=== PATIENT | male | born 2000 | race Caucasian/White ===

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

== ENCOUNTER 2020-04-28 04:36 | Emergency (ER) | payer OTHER ==
[2020-04-28 04:45] VITALS: BP 100/53; PULSE 94; RESP 20; TEMP 98.3
--- NOTE | 2020-04-28 05:08 | ED ---
Head Injury HPI <Khushboo Bowling - Last Filed: 04/28/20 06:36> - General Source: patient, RN notes reviewed, old records reviewed Mode of arrival: ambulatory Limitations: altered mental status (Alcohol intoxication) - History of Present Illness MD Complaint: head injury, fall, other (Alcohol intoxication) -: hour(s) Mechanism of Injury: unsure, mechanical fall Location: frontal, face Loss of Consciousness: unsure Place: home Radiation: none Severity: moderate Severity scale (1-10): 4 Quality: aching Consistency: constant Provoking factors: none known Other Injuries: none Associated Symptoms: denies other symptoms <Valentino Pierre - Last Filed: 04/28/20 06:52> - General Chief complaint: Head Injury Stated complaint: Fall Time Seen by Provider: 04/28/20 04:38 - History of Present Illness Initial comments: This is a 19-year-old male DF for evaluation. Patient comes in for trip and fall. No medical history, takes no medications, does admit to drinking alcohol tonight. Patient fell forward landing on his face unsure of how he lost his balance. Otherwise no other complaints no loss of consciousness no wrist pain arm pain chest pain knee pain or any other pain noted. (Valentino Pierre) - Related Data Home Medications Medication Instructions Recorded Confirmed Cetirizine HCl [Zyrtec] 10 mg PO DAILY 03/01/16 03/01/16 Allergies/Adverse reactions: Allergies Allergy/AdvReac Type Severity Reaction Status Date / Time No Known Allergies Allergy Verified 04/28/20 04:45 Review of Systems ROS Other: All systems not noted in ROS Statement are negative. <Khushboo Bowling - Last Filed: 04/28/20 06:36> ROS Other: All systems not noted in ROS Statement are negative. <Valentino Pierre - Last Filed: 04/28/20 06:52> ROS Statement: Those systems with pertinent positive or pertinent negative responses have been documented in the HPI. Past Medical History Past Medical History: No Reported History History of Any Multi-Drug Resistant Organisms: None Reported Additional Past Surgical History / Comment(s): hydrocele Past Psychological History: No Psychological Hx Reported Smoking Status: Never smoker Past Alcohol Use History: None Reported Past Drug Use History: None Reported <Valentino Pierre - Last Filed: 04/28/20 06:52> General Exam Limitations: no limitations General appearance: alert, in no apparent distress Head exam: Present: normocephalic, normal inspection, other (Significant periorbital edema). Absent: atraumatic (Right eye has laceration about 3 cm) Eye exam: Present: normal appearance, PERRL, EOMI. Absent: scleral icterus, conjunctival injection, periorbital swelling ENT exam: Present: normal exam, mucous membranes moist Neck exam: Present: normal inspection. Absent: tenderness, meningismus, lymphadenopathy Respiratory exam: Present: normal lung sounds bilaterally. Absent: respiratory distress, wheezes, rales, rhonchi, stridor Cardiovascular Exam: Present: regular rate, normal rhythm, normal heart sounds. Absent: systolic murmur, diastolic murmur, rubs, gallop, clicks GI/Abdominal exam: Present: soft, normal bowel sounds. Absent: distended, tenderness, guarding, rebound, rigid Extremities exam: Present: normal inspection, full ROM, normal capillary refill. Absent: tenderness, pedal edema, joint swelling, calf tenderness Back exam: Present: normal inspection Neurological exam: Present: alert, oriented X3, CN II-XII intact Psychiatric exam: Present: normal affect, normal mood Skin exam: Present: warm, dry, intact, normal color. Absent: rash <Valentino Pierre - Last Filed: 04/28/20 06:52> Course <Valentino Pierre - Last Filed: 04/28/20 06:52> Vital Signs 04/28/20 04:40 Temperature 98.3 F Pulse Rate 94 Respiratory 20 Rate Blood Pressure 100/53 O2 Sat by Pulse 100 Oximetry - Reevaluation(s) Reevaluation #1: 04/28/20 05:41 medical record is reviewed (Valentino Pierre) Reevaluation #2: 04/28/20 06:51 Patient is in no distress here in the ER able to ambulate without difficulty will be discharged. (Valentino Pierre) Procedures - Laceration Laceration #1 Consent Obtained: verbal consent Indication: laceration Site: face Size (cm): 3 Description: flap, avulsion, irregular, clean Anesthetic Used: lidocaine 1% Anesthesia Technique: local infiltration Amount (mls): 1 Pre-repair: wound explored, irrigated extensively Type of Sutures: nylon Size of Sutures: 6-0 Number of Sutures: 8 Technique: simple, interrupted Patient Tolerated Procedure: well, no complications <Khushboo Bowling - Last Filed: 04/28/20 06:36> Medical Decision Making - Radiology Data Radiology results: report reviewed (CT brain C-spine and facial bones negative for traumatic fracture), image reviewed <Valentino Pierre - Last Filed: 04/28/20 06:52> - Medical Decision Making 19-year-old male DF status post trip and fall. Patient is staying supraorbital 3 cm laceration above right eye with periorbital edema. CT facial bones brain C-spine negative for traumatic injury and patient can be discharged home with intoxication patient be discharged to family (Valentino Pierre) Disposition <Khushboo Bowling - Last Filed: 04/28/20 06:36> Is patient prescribed a controlled substance at d/c from ED?: No <Valentino Pierre - Last Filed: 04/28/20 06:52> Clinical Impression: Closed head injury, Facial laceration, Alcohol intoxication Disposition: HOME SELF-CARE Condition: Good Instructions (If sedation given, give patient instructions): Head Injury (ED), Laceration (ED) Referrals: None,Stated [Primary Care Provider] - 1-2 days
[2020-04-28] MEDS ORDERED: LIDOCAINE 1%-EPI 1:100,000 20 ML VIAL SQ STA (05:36)
--- NOTE | 2020-04-28 05:53 | CT ---
EXAM: CT Head Without Intravenous Contrast CLINICAL HISTORY: fall TECHNIQUE: Axial computed tomography images of the head/brain without intravenous contrast. CTDI is 25.8 mGy and DLP is 783.9 mGy-cm. This CT exam was performed using one or more of the following dose reduction techniques: automated exposure control, adjustment of the mA and/or kV according to patient size, and/or use of iterative reconstruction technique. COMPARISON: No relevant prior studies available. FINDINGS: Brain: Unremarkable. No hemorrhage. No significant white matter disease. No edema. Ventricles: Unremarkable. No ventriculomegaly. Bones/joints: Unremarkable. No acute fracture. Soft tissues: Mild scalp soft tissue swelling overlying the right frontal calvarium. Sinuses: Please refer to the maxillofacial CT performed the same day. Mastoid air cells: Unremarkable as visualized. No mastoid effusion. IMPRESSION: No evidence of acute intracranial pathology. EXAM: CT Cervical Spine Without Intravenous Contrast CLINICAL HISTORY: fall TECHNIQUE: Axial computed tomography images of the cervical spine without intravenous contrast. CTDI is 12 mGy and DLP is 353.3 mGy-cm. This CT exam was performed using one or more of the following dose reduction techniques: automated exposure control, adjustment of the mA and/or kV according to patient size, and/or use of iterative reconstruction technique. COMPARISON: No relevant prior studies available. FINDINGS: Vertebrae: No evidence of acute fracture or traumatic malalignment. Straightening of the normal cervical lordosis, which may represent muscle spasm versus positioning. Discs/spinal canal/neural foramina: No acute findings. No spinal canal stenosis. Soft tissues: Unremarkable. IMPRESSION: 1. No evidence of acute fracture or traumatic malalignment. 2. Straightening of the normal cervical lordosis, which may represent muscle spasm versus positioning.
--- NOTE | 2020-04-28 06:31 | CT ---
EXAM: CT Maxillofacial Without Intravenous Contrast CLINICAL HISTORY: fall TECHNIQUE: Axial computed tomography images of the face without intravenous contrast. CTDI is 0.17 mGy and DLP is 7 mGy-cm. This CT exam was performed using one or more of the following dose reduction techniques: automated exposure control, adjustment of the mA and/or kV according to patient size, and/or use of iterative reconstruction technique. COMPARISON: No relevant prior studies available. FINDINGS: Bones/joints: No acute fracture. Soft tissues: Unremarkable. Orbits: Unremarkable. Sinuses: Mild right and moderate left polypoid mucosal thickening involving both maxillary sinuses. Mucous retention cysts would be included in the differential. No air-fluid levels. IMPRESSION: No acute findings in the face.
== END 2020-04-28 07:07 | disposition home or self-care (01) ==
LOC: EC 04:36
DX: F10.129 Alcohol abuse with intoxication, unspecified (principal); S01.81XA Laceration without foreign body of other part of head, initial encounter; W01.0XXA Fall on same level from slipping, tripping and stumbling without subsequent striking against object, initial encounter; Y92.009 Unspecified place in unspecified non-institutional (private) residence as the place of occurrence of the external cause
CPT/HCPCS: 12013; 70450; 70486; 72125; 99284

== ENCOUNTER 2021-07-13 06:15 | Inpatient (IN) | payer OTHER ==
[2021-07-13 06:29] LABS: Glucose,Whole Blood 192 mg/dL (75-99)
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
[2021-07-13 06:45] LABS: Basophils # (A) 0.1 k/uL (0-0.2); Basophils % (A) 1 %; Eosinophils # (A) 0.1 k/uL (0-0.7); Eosinophils % (A) 1 %; HGB 15.3 gm/dL (13.0-17.5); Lymphocytes # (A) 4.4 k/uL (1.0-4.8); Lymphocytes % (A) 27 %; MCHC 33.9 g/dL (31.0-37.0); MCV 94.3 fL (80.0-100.0); Mean Platelet Volume 7.1; Monocytes # (A) 0.3 k/uL (0-1.0); Monocytes % (A) 2 %; Neutrophils % (A) 68 %; Platelet Count 369 k/uL (150-450); RBC 4.77 m/uL (4.30-5.90); RDW 12.8 % (11.5-15.5); WBC 16.1 k/uL (4.0-11.0)
[2021-07-13 06:53] LABS: Partial Thromboplastin Time 22.2 sec (22.0-30.0); Prothrombin Time 10.6 sec (9.0-12.0)
[2021-07-13 06:55] LABS: ALT 35 U/L (4-49); AST 48 U/L (17-59); African American GFR (CKD) >90 (>60 ml/min/1.73 sqM); Albumin 4.4 g/dL (3.5-5.0); Alkaline Phosphatase 96 U/L (38-126); Anion Gap 11 mmol/L; Blood Urea Nitrogen 12 mg/dL (9-20); Calcium 8.4 mg/dL (8.4-10.2); Carbon Dioxide 20 mmol/L (22-30); Chloride 110 mmol/L (98-107); Glucose 218 mg/dL (74-99); Non-African American GFR(CKD) >90 (>60 ml/min/1.73 sqM); Potassium 4.1 mmol/L (3.5-5.1); Sodium 141 mmol/L (137-145); Total Bilirubin 0.5 mg/dL (0.2-1.3); Total Protein 7.5 g/dL (6.3-8.2)
[2021-07-13] MEDS ORDERED: SODIUM CHLORIDE 0.9% 1,000 ML IV ONE (06:57)
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
[2021-07-13 07:16] LABS: Alcohol 221 mg/dL
[2021-07-13 07:18] LABS: Appearance,Urine Clear (Clear); Bilirubin,Urine Negative (Negative); Blood,Urine Moderate (Negative); Color,Urine Light Yellow; Glucose,Urine (UA) 2+ (Negative); Granular Casts,Urine 4 /lpf (0); Hyaline Casts,Urine 7 /lpf (0-2); Ketones,Urine Negative (Negative); Leukocyte Esterase,Urine Negative (Negative); Mucus,Urine Rare /hpf; Nitrite,Urine Negative (Negative); PH, Urine 5.5 (5.0-8.0); Protein,Urine Negative (Negative); RBC,Urine 3 /hpf (0-5); Renal Epithelial Cells,Urine 3 /hpf (0); Specific Gravity,Urine 1.015 (1.001-1.035); Urobilinogen,Urine <2.0 mg/dL (<2.0); WBC,Urine 3 /hpf (0-5)
[2021-07-13 07:24] LABS: Amphetamine Screen,Urine Not Detected (NotDetected); Barbiturate Screen,Urine Not Detected (NotDetected); Benzodiazepines Screen,Urine Not Detected (NotDetected); Cocaine Screen,Urine Not Detected (NotDetected); Methadone Screen, Urine Not Detected (NotDetected); Opiate Screen,Urine Not Detected (NotDetected); Oxycodone Screen, Urine Not Detected (NotDetected); Phencyclidine Screen,Urine Not Detected (NotDetected); Tricyclic Antidepressant,Urine Not Detected (NotDetected); Urn Cannabinoid Scrn Not Detected (NotDetected)
[2021-07-13] MEDS ORDERED: LIDOCAINE 1% INJ 10MG/ML (20 ML MDV) SQ ONE (07:26)
[2021-07-13] MEDS ORDERED: ONDANSETRON 4 MG/2 ML VIAL IVP PRN (07:52)
[2021-07-13] MEDS ORDERED: NALOXONE 0.4 MG/ML 1 ML VIAL IV PRN (07:52)
[2021-07-13] MEDS ORDERED: ACETAMINOPHEN TAB 325 MG TAB PO PRN (07:52)
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
[2021-07-13] MEDS: THIAMINE 100 MG/ML 2 ML VIAL IVP SCH (10:07)
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
[2021-07-13 12:26] LABS: T4, Free (Free Thyroxine) 1.16 ng/dL (0.78-2.19)
[2021-07-13] MEDS: SODIUM CHLORIDE 0.9% 1,000 ML IV SCH ×2 (15:51→17:12)
[2021-07-13] MEDS: HEPARIN SODIUM,PORCINE/PF 5,000 UNIT/0.5 ML SYRINGE SQ SCH (16:59)
[2021-07-13 18:31] LABS: Glucose,Whole Blood 89 mg/dL (75-99)
[2021-07-13] MEDS: FAMOTIDINE 20 MG/2 ML VIAL IV SCH (20:48)
[2021-07-13] MEDS: KETOROLAC 30 MG/ML 1 ML VIAL IVP PRN (21:24)
[2021-07-14 00:37] LABS: Glucose,Whole Blood 89 mg/dL (75-99)
[2021-07-14] MEDS: SODIUM CHLORIDE 0.9% 1,000 ML IV SCH ×3 (00:37→15:14)
[2021-07-14] MEDS: HEPARIN SODIUM,PORCINE/PF 5,000 UNIT/0.5 ML SYRINGE SQ SCH ×3 (00:37→15:15)
[2021-07-14] MEDS: KETOROLAC 30 MG/ML 1 ML VIAL IVP PRN ×3 (04:30→20:30)
[2021-07-14 06:33] LABS: Glucose,Whole Blood 93 mg/dL (75-99)
[2021-07-14 08:02] LABS: HCT 39.4 % (39.0-53.0); HGB 13.4 gm/dL (13.0-17.5); MCH 31.9 pg (25.0-35.0); MCHC 33.9 g/dL (31.0-37.0); Mean Platelet Volume 7.5; Platelet Count 231 k/uL (150-450); RDW 12.2 % (11.5-15.5); WBC 13.6 k/uL (4.0-11.0)
[2021-07-14] MEDS: FAMOTIDINE 20 MG/2 ML VIAL IV SCH ×2 (08:06→20:31)
[2021-07-14] MEDS: THIAMINE 100 MG/ML 2 ML VIAL IVP SCH (08:06)
[2021-07-14 08:12] LABS: ALT 28 U/L (4-49); AST 40 U/L (17-59); African American GFR (CKD) >90 (>60 ml/min/1.73 sqM); Albumin 3.6 g/dL (3.5-5.0); Alkaline Phosphatase 88 U/L (38-126); Anion Gap 5 mmol/L; Blood Urea Nitrogen 14 mg/dL (9-20); Calcium 8.9 mg/dL (8.4-10.2); Carbon Dioxide 24 mmol/L (22-30); Chloride 107 mmol/L (98-107); Glucose 96 mg/dL (74-99); Non-African American GFR(CKD) >90 (>60 ml/min/1.73 sqM); Potassium 4.1 mmol/L (3.5-5.1); Sodium 136 mmol/L (137-145); Total Bilirubin 1.7 mg/dL (0.2-1.3); Total Protein 6.4 g/dL (6.3-8.2)
--- NOTE | 2021-07-14 10:52 | CT ---
rad EXAMINATION TYPE: CT facial bones wo con DATE OF EXAM: 07/14/2021 COMPARISON: None HISTORY: Trauma Unenhanced CT of the facial bones was performed in the axial and coronal planes. Bone and soft tissu e window settings are submitted. There is mildly comminuted fracture involving the proximal body near the mentum of the right hemimand ible. Displacement of approximately 1 mm noted. Soft tissue swelling and a small amount of soft tissu e air seen. There is a loose tooth noted within the mouth. No additional fractures are seen within th e [id number]. The globes are intact. Paranasal sinuses are well-aerated. IMPRESSION: 1. There is mildly comminuted fracture involving the proximal body near the mentum of the right chavez mandible.
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
--- NOTE | 2021-07-14 12:00 | ECHOF ---
Referral Reason:LV function MEASUREMENTS -------- HEIGHT: 170.2 cm WEIGHT: 59.0 kg BP: RVIDd: 2.9 cm (< 3.3) IVSd: 1.0 cm (0.6 - 1.1) LVIDd: 4.0 cm (3.9 - 5.3) LVPWd: 1.0 cm (0.6 - 1.1) IVSs: 1.3 cm LVIDs: 2.8 cm LVPWs: 1.3 cm LAESV Index (A-L): 20.98 ml/m Ao Diam: 2.9 cm (2.0 - 3.7) AV Cusp: 2.2 cm (1.5 - 2.6) LA Diam: 3.5 cm (2.7 - 3.8) MV EXCURSION: 17.802 mm (> 18.000) MV EF SLOPE: 117 mm/s (70 - 150) EPSS: 0.5 cm MV E Lincoln: 0.96 m/s MV DecT: 217 ms MV A Lincoln: 0.53 m/s MV E/A Ratio: 1.80 RAP: 5.00 mmHg RVSP: 28.59 mmHg FINDINGS -------- Sinus rhythm. This was a technically adequate study. The left ventricular size is normal. Left ventricular wall thickness is normal. Overall left vent ricular systolic function is normal with, an EF between 55 - 60 %. The diastolic filling pattern is normal for the age of the patient 6.05. The right ventricle is normal in size. Normal LA size by volume 22+/-6 ml/m2. The right atrial size is normal. Interatrial and interventricular septum intact. The aortic valve is trileaflet and appears structurally normal. There is no evidence of aortic regu rgitation. There is no evidence of aortic stenosis. Can not r/o bicuspid AV No mitral regurgitation. Mild tricuspid regurgitation present. There is no evidence of pulmonary hypertension. The right v entricular systolic pressure, as measured by Doppler, is 28.59mmHg. There is no pulmonic regurgitation present. The aortic root size is normal. The inferior vena cava is mildly dilated. There is no pericardial effusion. CONCLUSIONS -------- 1. The left ventricular size is normal. 2. Left ventricular wall thickness is normal. 3. Overall left ventricular systolic function is normal with, an EF between 55 - 60 %. 4. The diastolic filling pattern is normal for the age of the patient 6.05 5. Can not r/o bicuspid AV 6. Mild tricuspid regurgitation present. T[employer] ENGINE ASSEMBLER: Alpa Vail RDCS
[2021-07-14 12:01] LABS: Glucose,Whole Blood 100 mg/dL (75-99)
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
[2021-07-14 16:39] LABS: Glucose,Whole Blood 99 mg/dL (75-99)
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
[2021-07-15] MEDS: HEPARIN SODIUM,PORCINE/PF 5,000 UNIT/0.5 ML SYRINGE SQ SCH ×4 (00:38→23:51)
[2021-07-15] MEDS: SODIUM CHLORIDE 0.9% 1,000 ML IV SCH ×2 (05:21→18:09)
[2021-07-15] MEDS: FAMOTIDINE 20 MG/2 ML VIAL IV SCH ×2 (08:30→20:29)
[2021-07-15] MEDS: THIAMINE 100 MG/ML 2 ML VIAL IVP SCH (08:31)
[2021-07-15 12:11] LABS: Glucose,Whole Blood 88 mg/dL (75-99)
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
[2021-07-15] MEDS: KETOROLAC 30 MG/ML 1 ML VIAL IVP PRN ×2 (13:43→23:49)
--- NOTE | 2021-07-15 14:10 | CT ---
EXAMINATION TYPE: CT brain wo con DATE OF EXAM: 07/15/2021 COMPARISON: CT brain 2 days ago HISTORY: Concussion, follow up r/o slow growing SDH CT DLP: 1099.4 mGycm. Automated Exposure Control for Dose Reduction was Utilized. TECHNIQUE: CT scan of the head is performed without contrast. FINDINGS: There is no acute intracranial hemorrhage, mass effect, or midline shift identified. The ventricles and sulci are within normal limits in size. Seth-white matter differentiation is maintain ed. The calvarium is intact. The globes are intact and the visualized sinuses are clear. IMPRESSION: No acute intracranial hemorrhage or midline shift is seen. No significant change from pr ior study.
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
[2021-07-15 18:14] LABS: Glucose,Whole Blood 185 mg/dL (75-99)
--- NOTE | 2021-07-15 18:19 | P.PN ---
Progress Note - Text Progress Note Date: 07/15/21 Patient's surgery today was canceled due to inability to get MRI for MRI department closed at 2:00. There was some question as to the order and hospital MRI policy on recently placed stainless steel wires in the mouth. Did not want to wait 6 more weeks for MRI if the policy was not able to be circumvented. Plan to get MRI first thing tomorrow morning and then plan to do surgery in the afternoon Discussed these events with mom and patient were disappointed but understood. Plan to do surgery tomorrow. Patient was happy to get some food tonight. Reports his pain is well-controlled. Able open his mouth when yawning to approximately 10-15 mm but When asked open his mouth has difficulty. Patient reports numbness lower right lip and discussed with patient and mother how this may be a permanent situation. Swelling of the face appears less than yesterday patient appears more comfortable and alert. Assessment comminuted right mandibular body fracture awaiting surgery. Plan to get a MRI in the morning and surgery in the afternoon.
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
[2021-07-16 00:04] LABS: Glucose,Whole Blood 90 mg/dL (75-99)
[2021-07-16 05:48] LABS: Glucose,Whole Blood 93 mg/dL (75-99)
[2021-07-16] MEDS: KETOROLAC 30 MG/ML 1 ML VIAL IVP PRN (07:43)
[2021-07-16] MEDS: SODIUM CHLORIDE 0.9% 1,000 ML IV SCH (07:49)
[2021-07-16] MEDS: HEPARIN SODIUM,PORCINE/PF 5,000 UNIT/0.5 ML SYRINGE SQ SCH ×3 (10:07→20:29)
[2021-07-16] MEDS: FAMOTIDINE 20 MG/2 ML VIAL IV SCH ×2 (10:09→20:28)
[2021-07-16] MEDS: THIAMINE 100 MG/ML 2 ML VIAL IVP SCH (10:10)
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
[2021-07-16 10:58] VITALS: BMI 23.7
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
[2021-07-16 12:34] LABS: Glucose,Whole Blood 103 mg/dL (75-99)
--- NOTE | 2021-07-16 13:36 | MR ---
EXAMINATION TYPE: MR brachial plexus SRI wo con DATE OF EXAM: 07/16/2021 COMPARISON: MRI cervical spine 07/14/2021 HISTORY: T2 signal; BL UE weakness Standard multiplanar, multisequence MRI departmental protocol Multiplanar, multisequence images of the bilateral brachial plexus were acquired without contrast. Di ffusion weighted imaging was performed. FINDINGS: There is confirmation of mild increased signal within the bilateral C5-6, C6-7 and C7-T1 brachial ple xus trunks and roots. The visualized cords appear to be symmetric and free of definite increased sign al or mass. No abnormal fluid collection. No mass lesions seen. IMPRESSION: Mld increased signal within the bilateral C5-6, C6-7 and C7-T1 brachial plexus trunks and roots. The findings are nonspecific and could be posttraumatic in nature versus related to brachial plexitis/demond ritis.
[2021-07-16] MEDS ORDERED: LACTATED RINGERS 1,000 ML IV ONE ×2 (13:39→14:52)
[2021-07-16] MEDS ORDERED: ONDANSETRON 4 MG/2 ML VIAL IVP ONE (13:42)
[2021-07-16] MEDS ORDERED: DEXAMETHASONE SOD PHOSPHATE 4 MG/ML 1 ML VIAL IV ONE (13:43)
[2021-07-16] MEDS ORDERED: MIDAZOLAM 2 MG/2 ML VIAL ONE (14:00)
[2021-07-16] MEDS ORDERED: ACETAMINOPHEN IV (For NPO) 1,000 MG/100 ML VIAL ONE (14:00)
[2021-07-16] MEDS ORDERED: PROPOFOL 10 MG/ML 20 ML VIAL IV ONE (14:00)
[2021-07-16] MEDS ORDERED: NEOSTIGMINE 1 MG/ML 10 ML VIAL ONE (14:00)
[2021-07-16] MEDS ORDERED: ONDANSETRON 4 MG/2 ML VIAL ONE (14:00)
[2021-07-16] MEDS ORDERED: LIDOCAINE 1% INJ 10MG/ML (20 ML MDV) ONE (14:00)
[2021-07-16] MEDS ORDERED: SUCCINYLCHOLINE CHLORIDE 100 MG/5 ML SYR IV ONE (14:00)
[2021-07-16] MEDS ORDERED: GLYCOPYRROLATE 0.2 MG/ML 2 ML VIAL ONE (14:00)
[2021-07-16] MEDS ORDERED: ROCURONIUM 10 MG/ML (5 ML VIAL) IV ONE (14:00)
[2021-07-16] MEDS ORDERED: fentaNYL (PF) 50 MCG/ML 2 ML AMP ONE (14:00)
[2021-07-16] MEDS ORDERED: DEXAMETHASONE SOD PHOSPHATE 10 MG/ML 1 ML VIAL ONE (14:00)
[2021-07-16] MEDS ORDERED: KETOROLAC 15 MG/ML 1 ML VIAL ONE (14:00)
[2021-07-16] MEDS ORDERED: LIDOCAINE 2%-EPI 1:100,000 20 ML VIAL SUBMUCOSAL ONE ×2 (14:24)
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
[2021-07-16 17:42] LABS: Glucose,Whole Blood 119 mg/dL (75-99)
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
[2021-07-17 00:25] LABS: Glucose,Whole Blood 152 mg/dL (75-99)
[2021-07-17] MEDS: KETOROLAC 30 MG/ML 1 ML VIAL IVP PRN ×3 (04:19→17:41)
[2021-07-17] MEDS: SODIUM CHLORIDE 0.9% 1,000 ML IV SCH ×2 (05:40→11:50)
[2021-07-17 05:58] LABS: Glucose,Whole Blood 140 mg/dL (75-99)
[2021-07-17 07:17] LABS: Basophils % (A) 0 %; Eosinophils % (A) 0 %; HCT 38.7 % (39.0-53.0); HGB 13.4 gm/dL (13.0-17.5); Lymphocytes % (A) 11 %; MCH 31.3 pg (25.0-35.0); MCHC 34.6 g/dL (31.0-37.0); MCV 90.6 fL (80.0-100.0); Mean Platelet Volume 7.4; Monocytes # (A) 0.7 k/uL (0-1.0); Monocytes % (A) 7 %; Neutrophils # (A) 7.7 k/uL (1.3-7.7); Neutrophils % (A) 81 %; Platelet Count 285 k/uL (150-450); RBC 4.27 m/uL (4.30-5.90); RDW 11.7 % (11.5-15.5); WBC 9.5 k/uL (4.0-11.0)
[2021-07-17 07:51] LABS: African American GFR (CKD) >90 (>60 ml/min/1.73 sqM); Anion Gap 5 mmol/L; Blood Urea Nitrogen 14 mg/dL (9-20); Calcium 9.2 mg/dL (8.4-10.2); Carbon Dioxide 25 mmol/L (22-30); Chloride 103 mmol/L (98-107); Glucose 129 mg/dL (74-99); Non-African American GFR(CKD) >90 (>60 ml/min/1.73 sqM); Potassium 4.6 mmol/L (3.5-5.1); Sodium 133 mmol/L (137-145)
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
[2021-07-17] MEDS: FAMOTIDINE 20 MG/2 ML VIAL IV SCH (08:53)
[2021-07-17] MEDS: THIAMINE 100 MG/ML 2 ML VIAL IVP SCH (08:54)
[2021-07-17] MEDS: HEPARIN SODIUM,PORCINE/PF 5,000 UNIT/0.5 ML SYRINGE SQ SCH ×2 (08:54→16:31)
--- NOTE | 2021-07-17 09:15 | PN ---
PROGRESS NOTE SUBJECTIVE: The patient's mother in room. Resting comfortably. No complaints. Had a good night last night. The patient appears alert and oriented x3. Drinking from straw at the bedside. Jell-O at bedside as well as thickened shake looking material. The patient reported minimal pain last night, well controlled and eager to go home. OBJECTIVE: Intraoral exam shows the patient has good maxillomandibular fixation with inter arch wires in place. Extraoral wounds are clean. Extraoral wound is intact and clean. ASSESSMENT: Patient is responding well to closed reduction maxillomandibular fixation. One day postop course appears within normal limits. PLAN: The patient to continue increasing oral intake. Follow up in the office in 10-14 days. The patient is to carry a set of wire cutters on his person at all times and only cut wires in case of emergency. The patient is clear to go home from an oral surgery standpoint. MMODL / IJN: [id number] /
[2021-07-17 12:00] LABS: Glucose,Whole Blood 108 mg/dL (75-99)
[2021-07-17] MEDS: prednisoLONE ORAL SOLUTION 15MG/5ML CUP PO SCH ×2 (12:08→16:30)
[2021-07-17 12:53] VITALS: RESP 18
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
[2021-07-17 16:45] VITALS: BP 106/52; PULSE 50; TEMP 98.3
[2021-07-17 17:13] LABS: Glucose,Whole Blood 122 mg/dL (75-99)
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
== END 2021-07-17 18:22 | disposition home or self-care (01) | DRG 157 ==
LOC: EC 06:15 → 3SCARD 07:52
PROVIDERS: ADMIT Surgery; ATTEND Surgery
PROC: 0CQ1XZZ Repair Lower Lip, External Approach (ICD-10-PCS; 2021-07-13)
PROC: 0NST34Z Reposition Right Mandible with Internal Fixation Device, Percutaneous Approach (ICD-10-PCS; principal; 2021-07-16 07:30)
DX: S02.601A Fracture of unspecified part of body of right mandible, initial encounter for closed fracture (principal); G92.8 Other toxic encephalopathy; S06.0X9A Concussion with loss of consciousness of unspecified duration, initial encounter; G95.9 Disease of spinal cord, unspecified; T51.0X1A Toxic effect of ethanol, accidental (unintentional), initial encounter; S01.511A Laceration without foreign body of lip, initial encounter; V47.5XXA Car driver injured in collision with fixed or stationary object in traffic accident, initial encounter; T51.91XA Toxic effect of unspecified alcohol, accidental (unintentional), initial encounter; F10.129 Alcohol abuse with intoxication, unspecified; F17.200 Nicotine dependence, unspecified, uncomplicated; Z20.822 Contact with and (suspected) exposure to COVID-19; G54.0 Brachial plexus disorders; G31.2 Degeneration of nervous system due to alcohol; Y90.7 Blood alcohol level of 200-239 mg/100 ml; Y92.410 Unspecified street and highway as the place of occurrence of the external cause; R53.1 Weakness
CPT/HCPCS: 12014; 36415; 70450; 70486; 71045; 71260; 71550; 72125; 72141; 72170; 74177; 80048; 80053; 80306; 80320; 81001; 82140; 82607; 82746; 83605; 84439; 84443; 84484; 85025; 85027; 85610; 85730; 86850; 86900; 86901; 87635; 93005; 93306; 96360; 99285

== ENCOUNTER → 2022-09-18 | Outpatient (CLI) | payer OTHER, BC ==
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
== END | disposition home or self-care (01) ==
LOC: RADMRIMAIN 17:22
PROVIDERS: ATTEND Orthopaedic Surgery Orthopaedic Surgery of the Spine
DX: M54.2 Cervicalgia (principal)
CPT/HCPCS: 72156; A9585

== ENCOUNTER 2023-11-14 15:03 | Emergency (ER) | payer BC ==
[2023-11-14 15:10] VITALS: TEMP 98.6
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
[2023-11-14 16:14] VITALS: BP 127/72; PULSE 60; RESP 18
--- NOTE | 2023-11-14 18:18 | XR ---
EXAMINATION TYPE: XR ribs LT w pa chest xray DATE OF EXAM: 11/14/2023 3:33 PM CLINICAL INDICATION:Male, 22 years old with history of pain; [facility] COMPARISON: 07/13/2021 TECHNIQUE: XR ribs LT w pa chest xray; Frontal and oblique views of the ribs with frontal chest radio graph. FINDINGS: The ribs have a normal appearance. No evidence of fracture. Overall, the lungs are clear. The cardiac silhouette is normal in size. The remaining osseous structures are intact. IMPRESSION: No acute osseous pathology.
== END 2023-11-14 16:25 | disposition home or self-care (01) ==
LOC: EC 15:03
DX: S20.212A Contusion of left front wall of thorax, initial encounter (principal); V09.20XA Pedestrian injured in traffic accident involving unspecified motor vehicles, initial encounter; Y92.410 Unspecified street and highway as the place of occurrence of the external cause
CPT/HCPCS: 99284